=== PATIENT | female | born 1955 | race African-American/Black ===

== ENCOUNTER 2023-01-15 11:14 | Outpatient (CLI) | payer MEDICARE, BC | END 2023-01-15 11:15 | disposition home or self-care (01) | LOC: CSHMRI 11:14 | PROVIDERS: ATTEND Nurse Practitioner Family | DX: M54.16 Radiculopathy, lumbar region (principal); M51.24 Other intervertebral disc displacement, thoracic region; M47.816 Spondylosis without myelopathy or radiculopathy, lumbar region | CPT/HCPCS: 72146; 72148 ==